=== PATIENT | male | born 1985 | race Two or more races ===

== ENCOUNTER 2016-04-08 08:13 | Emergency (ER) | payer MEDICAID ==
[~2016-04-08] VITALS: Ht 177.8 cm; Wt 99.8 kg
[~2016-04-08 08:13] MED LIST: CYCL5TAB89 PO; IBUP800T24 PO
[2016-04-08 08:45] VITALS: BP 164/94
== END 2016-04-08 09:46 | disposition home or self-care (01) ==
LOC: ER 08:14
DX: I10 Essential (primary) hypertension (principal); F41.1 Generalized anxiety disorder; R42 Dizziness and giddiness; R11.0 Nausea; R05 Cough; Z79.899 Other long term (current) drug therapy
CPT/HCPCS: 71020; 93005